=== PATIENT | male | born 1975 | race Hispanic/Latino ===

== ENCOUNTER 2018-12-21 22:41 | Emergency (ER) | payer BC ==
[~2018-12-21] VITALS: Ht 165.1 cm; Wt 99.8 kg
--- NOTE | 2018-12-22 01:17 | Diagnostic Imaging Report ---
X-ray Cervical Spine, 3 views HISTORY: Pain. COMPARISON: None. FINDINGS: Limited sensitivity for detection of subtle fractures and ligamentous abnormalities. On the lateral view, the cervical spine is visualized from the skull base to . The alignment is normal. No acute displaced fracture involving the visualized cervical spine. Disc Spaces and Uncovertebral Joints: Mild degenerative changes in the mid cervical spine. Facets: The facet joints are unremarkable. Multiple missing teeth. IMPRESSION: No acute radiographic osseous abnormality. Mild degenerative changes in the cervical spine. Signed by: Mejia Alford DO on 12/22/2018 1:13 AM
--- NOTE | 2018-12-22 01:43 | Diagnostic Imaging Report ---
X-RAY LEFT SHOULDER 2 VIEWS X-RAY LEFT HUMERUS 2 VIEWS X-RAY LEFT ELBOW 3 VIEWS X-RAY LEFT FOREARM 2 VIEWS X-RAY LEFT WRIST 2 VIEWS HISTORY: Pain. COMPARISON: None available. FINDINGS: Bones: No acute displaced fracture. Osseous alignment is within normal limits. Joints: The joint spaces are well-maintained. Soft tissues: Calcified enthesophyte at the medial epicondyle and olecranon. IMPRESSION: No acute radiographic osseous abnormality. Signed by: Mejia Alford DO on 12/22/2018 1:39 AM
[2018-12-22 02:12] VITALS: BP 133/92
== END 2018-12-22 02:14 | disposition home or self-care (01) ==
LOC: ER 22:41
DX: S43.422A Sprain of left rotator cuff capsule, initial encounter (principal); S53.442A Ulnar collateral ligament sprain of left elbow, initial encounter; S63.522A Sprain of radiocarpal joint of left wrist, initial encounter; W11.XXXA Fall on and from ladder, initial encounter; Y92.008 Other place in unspecified non-institutional (private) residence as the place of occurrence of the external cause; E11.9 Type 2 diabetes mellitus without complications; E78.5 Hyperlipidemia, unspecified
CPT/HCPCS: 72040; 99283